=== PATIENT | male | born 1985 | race African-American/Black ===

== ENCOUNTER → 2024-12-31 | Outpatient (CLI) | payer OTHER | LOC: M PLAIMG 07:32 | PROVIDERS: ATTEND Physician Assistant | DX: R06.02 Shortness of breath (principal); R05.3 Chronic cough; Z65.5 Exposure to disaster, war and other hostilities ==

== ENCOUNTER → 2025-01-15 | Outpatient (CLI) | payer OTHER | LOC: M CARPUL 12:35 → EDUNIT# 13:00 | PROVIDERS: ATTEND Physician Assistant | DX: R06.02 Shortness of breath (principal) ==